=== PATIENT | male | born 1995 | race Caucasian/White ===

== ENCOUNTER 2018-03-05 09:06 | Emergency (ER) | payer SELFPAY ==
[2018-03-05 09:07] VITALS: BP 154/104; PULSE 85; RESP 16; TEMP 36.1; O2SAT 100; BMI 33.5
[2018-03-05] MEDS: HYDROcodone Bitartrate/Apap 5/325 Tablet PO (09:23)
--- NOTE | 2018-03-05 10:24 | ED.DCSUM_ITS ---
- ER Visit Summary Date of Service: 03/05/18 Chief Complaint: Left elbow pain History of Present Illness: The patient is a 22 M no significant past medical history. He is right-hand dominant. He was wrestling with a friend last night he fell off of bed and the friend landed on his left elbow. He said since that time he had significant pain and swelling. Pain is greatly increased with range of motion. He said it feels much better flexed than it does be tries to extend it. He denies any numbness or weakness in his left hand he denies any left shoulder pain. He has never had any surgery to this extremity. He denies other injuries. Physical Examination: Well-appearing young male. Vital signs are stable afebrile. H EENT exam unremarkable atraumatic C-spine nontender. Back nontender. Lungs clear to auscultation. Heart regular rhythm no murmur. Chest wall nontender. Abdomen soft nontender. Pelvic girdle intact. The right upper extremity both lower extremities are nontender neurovascularly intact. The left elbow he has flex at about 90?. It is swollen. There is tenderness. There is no gross bony deformity. No obvious dislocation. He is able to flex and extend but has significant much more pain with extension. The left shoulder, mid forearm, wrist and hand are nontender neurovascular intact with a strong radial pulse. 5 out of 5 inside meter tester strength and normal sensation to left hand. The skin is intact without any lacerations. His neurologic exam is normal. Test Results: Left elbow x-ray shows no acute fracture. There is soft tissue swelling. There is no dislocation. This was read both by myself and the radiologist. Emergency Department Course and Treatment: Patient given 2 Max for pain. On repeat exam is doing well. We went over his x-rays. Patient be placed in a sling. Motrin for pain. And follow-up with Dr. Rodney Corona in 1-2 weeks if not improving. Treatment Plan: Treated as a left elbow sprain. Sling. Anti-inflammatories and ice. Disposition: Discharge Impression: Left elbow sprain This note was generated with [employer] dictation software. It may contain incorrect words, spelling, and punctuation that were not noted in review of the chart prior to signing ED Disposition - Plan for ED Patient: Chief Complaint: Upper Extremity Injury Referrals: Care Physician,No Primary [Primary Care Provider] -
--- NOTE | 2018-03-05 10:24 | ED.DEP ---
ED Disposition - Plan for ED Patient: Disposition: Home or Assisted Living Chief Complaint: Upper Extremity Injury Instructions: ED Sprain Elbow Referrals: David Corona MD [STAFF PHYSICIAN] - 10-14 Days if not better Additional Instructions: Ice and elevate left elbow to decrease pain and swelling. Motrin 600-800 mg 3-4 times a day with food. This should progressively improve if not follow-up with Dr. Madhu Corona for further evaluation. At this time your x-ray show no fracture nor any dislocations.
== END 2018-03-05 10:48 | disposition home or self-care (01) ==
PROVIDERS: Emergency Provider Emergency Medicine
DX: S53.402A Unspecified sprain of left elbow, initial encounter (principal); Z72.0 Tobacco use; W06.XXXA Fall from bed, initial encounter; Y93.72 Activity, wrestling; Y92.003 Bedroom of unspecified non-institutional (private) residence as the place of occurrence of the external cause; Y99.8 Other external cause status
CPT/HCPCS: 73080; 99284

== ENCOUNTER 2019-03-28 19:17 | Emergency (ER) | payer BC, SELFPAY ==
[2019-03-28 19:18] VITALS: BP 153/67; PULSE 97; RESP 15; TEMP 36.9; O2SAT 100; BMI 33.8
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
[2019-03-28 20:09] LABS: Absolute Lymphocyte Count 3.43 X10^3/uL (0.83-4.51); Absolute Neutrophil Count 9.7 X10^3/uL (2.0-7.7); Basophil# 0.06 X10^3/uL; Basophil% 0.4 % (0-1); Eosinophil# 0.18 X10^3/uL; Eosinophils% 1.2 % (0-5); Hematocrit 44.2 % (40-54); Hemoglobin 14.3 g/dL (13.0-16.5); Lymphocyte # 3.43 X10^3/ul (4.0); Mean Corp Hgb Conc 32.4 g/dL (32-36); Mean Corpuscular Volume 92.7 fL (80-94); Mean Platelet Vol. 8.7 fl (6.2-12.0); Monocyte# 1.49 X10^3/uL; NRBC Flagged by Analyzer 0 % (0-5); Neutrophil # 9.69 X10^3/uL (2.7-7.7); Neutrophil % 64.9 % (47-70); Platelet Count 324 K/mm3 (150-450); RBC Distribution Width CV 14.6 % (11.6-14.6); RBC Distribution Width SD 49.9 fl (35.1-43.9); Red Blood Count 4.77 M/mm3 (4.6-6.2); White Blood Count 14.9 K/mm3 (4.4-11.0)
[2019-03-28 20:19] LABS: Anion Gap 6 (5-15); BUN 10 mg/dL (7-18); BUN/Creat Ratio 10.2 RATIO (10-20); Chloride 105 mmol/L (98-107); Creatinine, Serum 0.98 mg/dL (0.70-1.30); EST Glomerular Filtration Rate 100 mL/min (>60); Est Glom Filt Rate - Afr Amer 121 mL/min (>60); Glucose 87 mg/dL (74-106); Potassium 3.8 mmol/L (3.5-5.1); Sodium Level 138 mmol/L (136-145)
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
--- NOTE | 2019-03-28 21:54 | ED.DEP ---
ED Disposition - Plan for ED Patient: Disposition: Home or Assisted Living Instructions: Contusions (Bruises) Referrals: Care Physician,No Primary [NON-STAFF] - 3-5 Days if not improving Additional Instructions: Tylenol and Motrin for pain. Ice all sore areas. Follow-up with your doctor if not improving return if worse.
[2019-03-28 22:02] VITALS: BP 133/78; PULSE 80; RESP 14; O2SAT 100
== END 2019-03-28 22:03 | disposition home or self-care (01) ==
PROVIDERS: Emergency Provider Emergency Medicine; Family Provider Family Medicine; PCP Family Medicine
DX: S40.012A Contusion of left shoulder, initial encounter (principal); S30.1XXA Contusion of abdominal wall, initial encounter; Z72.0 Tobacco use; V86.65XA Passenger of 3- or 4- wheeled all-terrain vehicle (ATV) injured in nontraffic accident, initial encounter; Y93.I9 Activity, other involving external motion; Y92.89 Other specified places as the place of occurrence of the external cause; Y99.8 Other external cause status
CPT/HCPCS: 71046; 73030; 74177; 80048; 85025; 99283; Q9967; A4216

== ENCOUNTER 2020-05-19 11:48 | Emergency (ER) | payer MEDICAID, SELFPAY ==
[2020-05-19 11:49] VITALS: BP 156/96; PULSE 80; RESP 17; TEMP 36.4; O2SAT 98; BMI 37.4
--- NOTE | 2020-05-19 12:51 | ED.RN ---
pt states he is going to try to find an urgent care. pt walked out of emergency department.
== END 2020-05-19 14:18 | disposition left against medical advice (07) ==
PROVIDERS: Emergency Provider Student in an Organized Health Care Education/Training Program
DX: R21 Rash and other nonspecific skin eruption (principal)

== ENCOUNTER 2022-01-22 18:51 | Emergency (ER) | payer MEDICAID, SELFPAY ==
[2022-01-22 18:52] VITALS: BP 217/179; PULSE 72; RESP 18; TEMP 36.3; O2SAT 100; BMI 36.9
--- NOTE | 2022-01-22 19:10 | EKG12_ITS ---
Test Reason : DYSRHYTHMIA Blood Pressure : / mmHG Vent. Rate : 066 BPM Atrial Rate : 066 BPM P-R Int : 156 ms QRS Dur : 088 ms QT Int : 388 ms P-R-T Axes : 023 034 054 degrees QTc Int : 406 ms Normal sinus rhythm with sinus arrhythmia Normal ECG Confirmed by FREDERIC MARIE, JACKI ([id number]), deputy editor in chief ROSALINO BECKER ([id number]) on 01/24/2022 9:22:48 AM Referred By: JUDY Confirmed By:JACKI DE LA GARZA MD
--- NOTE | 2022-01-22 19:22 | ED.VIS.CHEST ---
HPI History of Present Illness Chief Complaint: Chest Pain Onset/Context/Timing Onset: Weeks (1) Activity at onset: gradual Timing: Intermittent Quality: Positive for Heaviness and Sharp Location: Left Chest Worsened By: Movement of Torso and - (Laying down) Relieved By: Nothing Associated Symptoms: Positive for Nausea, Diaphoresis, Dyspnea, Lightheadedness, Acid Reflux and Palpitations; Negative for Vomiting, Cough or Fever Narrative Narrative: Patient presents with chest pain that began approximate 1 week ago. Patient states it has been intermittent. Patient states it is over the left lateral side of his chest. Patient describes it as sharp. Patient states he also has a heavy feeling in his chest. Patient states he has been constantly short of breath over the last week. Patient admits to nausea but denies any vomiting. Patient admits to some diaphoresis. Patient also felt some palpitations where his heart was racing. Patient had a syncopal episode today where he passed out while sitting. Patient states his pain is worse when he lays down and rolls onto the left side of his chest. [facility] Medical History Anxiety Bloody stool Chronic neck and back pain Diarrhea Difficulty balancing when standing Knee pain Stomach ulcer Substance abuse Home Medications buspirone 5 mg tablet 5 mg PO BID 01/22/22 [History Last Taken Unknown] Allergy/AdvReac Type Severity Reaction Status Date / Time No Known Allergies Allergy Verified 05/19/20 13:50 Surgical History History of ankle surgery Social History Smoking Status: Unknown if ever smoked ROS ROS ED Constitutional Constitutional ED: Denies chills or fever(s) Eyes Eyes: Denies blurry vision or change in vision ENT ENT ED: Denies rhinorrhea or sore throat Cardiovascular Cardiovascular: Reports chest pain, palpitations and racing heartbeat Respiratory/Chest Respiratory/Chest: Reports dyspnea; Denies cough Gastrointestinal Gastrointestinal: Reports nausea; Denies abdominal pain or vomiting Genitourinary Genitourinary ED: Denies dysuria or hematuria Musculoskeletal Musculoskeletal: Denies back pain or neck pain Integumentary Denies abscess or rash Neurologic Neurologic: Reports headache(s); Denies weakness Allergic/Immunologic Allergic/Immunologic ED: Denies mouth swelling or urticaria EXAM Physical Exam Const Vital Signs: 01/22/22 18:52 01/22/22 19:23 01/22/22 20:39 Temperature 97.4 F L Temperature Source Temporal Pulse Rate 72 73 67 Respiratory Rate 18 14 17 Blood Pressure 217/179 H 129/94 H 117/76 Blood Pressure Mean 191 105 89 Pulse Ox 100 96 97 Oxygen Delivery Method Room Air Room Air Room Air Positive well nourished and well developed General Appearance ED: well developed and NAD HEENT normocephalic and atraumatic Eyes PERRL and EOMs intact bilaterally Neck supple and no JVD Chest Wall palpation of chest normal Resp normal respiratory effort and clear to auscultation bilaterally Effort and Inspection: Negative for respiratory distress Cardio regular rate, regular rhythm and no murmurs GI normal to inspection, nondistended, normoactive bowel sounds, soft to palpation, non-tender and non-distended Extremity normal to inspection General Extremety ED: Negative for edema or tenderness General Extremity: Negative for edema Neuro oriented x3, CN's II-XII intact bilaterally and no sensory deficits noted Sensorium / Orientation: awake and alert Motor Exam: strength 5/5 throughout Psych mental status grossly normal Heart Score History: Slightly/Non-Suspicious ECG: Normal Age: </= 45 years Risk Factors: 1 or 2 Risk Factors Score: 1 MDM MDM MDM Narrative Medical decision making narrative: EKG was obtained. On my interpretation, it showed a normal sinus rhythm with a rate of 66. [place] interval, QRS interval, and QTc intervals were all normal. [place] was normal. There are no acute ST or T wave changes. Portable 1 view chest x-ray was obtained. On my interpretation, lung nath are clear. There is normal cardiac silhouette. Bony thorax is normal. There is no acute process noted. Radiologist also interpreted the x-ray and agrees. CBC shows a mild leukocytosis of 14.1 but was otherwise within normal limits. Basic metabolic profile was within normal limits. High-sensitivity troponin was normal. Patient has a HEART score of 1. Patient was advised that this is low risk for acute cardiac event. Patient was instructed to follow-up with his primary care physician in 5 to 7 days for further evaluation. Patient understood and was agreeable with the plan. All questions were answered. Lab Data Attestation: I reviewed the patient's lab results. Labs: Laboratory Results - last 24 hr 01/22/22 01/22/22 19:15 19:15 WBC 14.1 H RBC 4.83 Hgb 14.3 Hct 44.6 MCV 92.3 MCH 29.6 MCHC 32.1 RDW Std Deviation 46.3 H RDW Coeff of Jessica 13.6 Plt Count 400 MPV 10.5 Immature Gran % (Auto) 0.400 Neut % (Auto) 52.7 Lymph % (Auto) 33.8 [place] % (Auto) 9.9 Eos % (Auto) 2.5 Baso % (Auto) 0.7 Absolute Neuts (auto) 7.5 Absolute Lymphs (auto) 4.77 H Nucleated RBC % 0 Sodium 141 Potassium 4.1 Chloride 108 H Carbon Dioxide 27.0 Anion Gap 6 BUN 13 Creatinine 0.97 Estim Creat Clear Calc 131.57 Est GFR (MDRD) Af Amer 121 Est GFR (MDRD) Non-Af 100 BUN/Creatinine Ratio 13.4 Glucose 67 L Calcium 9.5 Troponin I High Sens 3 Radiography Chest X-Ray - ED: 1 View, Read by ED Physician, Read by Radiologist and Normal Diagnostic Testing: Clinical Impression(s) from Imaging Studies Chest X-Ray 01/22/22 19:38 IMPRESSION: Normal x-ray examination of the chest. Electronically Signed: Juan Lyn MD at 20:13 EDT , EKG Initial EKG: Attestation: I personally reviewed and interpreted this EKG as follows: Interpretation: Sinus Rhythm (66) and No Acute Injury Pattern Discharge Plan Triage Chief Complaint: Chest Pain ED Provider: Dallas Trejo Dx/Rx/DC Orders Clinical Impression: Chest pain of uncertain etiology, Obesity (BMI 35.0-39.9 without comorbidity) Instructions: ED Chest Pain, Uncertain Cause Prescriptions: No Action buspirone 5 mg Tablet 5 mg PO BID Primary Care Provider: Care Physician,No Primary Referrals: Kathy Gallardo MD [STAFF PHYSICIAN] - 5-7 Days Disposition Disposition: Home, Self Care
[2022-01-22 19:23] VITALS: BP 129/94; PULSE 73; RESP 14; O2SAT 96
--- NOTE | 2022-01-22 19:38 | RAD_ITS ---
STUDY: X-RAY CHEST REASON FOR EXAM: Male, 26 years old. Chest pain TECHNIQUE: PA and lateral COMPARISON: 03/28/2015. FINDINGS: The lungs are clear and expanded. There is no demonstrated pleural abnormality. Normal size heart. Normal mediastinum and siobhan. Normal visualized pulmonary arteries. Normal visualized aortic arch and descending thoracic aorta. Normal visualized thoracic spine. Normal visualized ribs, clavicles, and shoulders. There is no demonstrated abnormality of the visualized soft tissue structures of the upper abdomen. RAD/Chest PA and Lateral IMPRESSION: Normal x-ray examination of the chest. Electronically Signed: Juan Lyn MD at 20:13 EDT ,
[2022-01-22 20:15] LABS: Anion Gap 6 (5-15); BUN 13 mg/dL (7-18); BUN/Creat Ratio 13.4 RATIO (10-20); Calcium,Total 9.5 mg/dL (8.5-10.1); Chloride 108 mmol/L (98-107); Creatinine, Serum 0.97 mg/dL (0.70-1.30); EST Glomerular Filtration Rate 100 mL/min (>60); Est Glom Filt Rate - Afr Amer 121 mL/min (>60); Estimated Creatinine Clearance 131.57 ml/min; Glucose 67 mg/dL (74-106); Potassium 4.1 mmol/L (3.5-5.1); Sodium Level 141 mmol/L (136-145); Troponin-I HS 3 pg/mL (3.0-78.0)
[2022-01-22 20:20] LABS: Absolute Lymphocyte Count 4.77 X10^3/uL (0.83-4.51); Absolute Neutrophil Count 7.5 X10^3/uL (2.0-7.7); Basophil% 0.7 % (0-1); Eosinophil# 0.35 X10^3/uL; Eosinophils% 2.5 % (0-5); Hematocrit 44.6 % (40-54); Hemoglobin 14.3 g/dL (13.0-16.5); Lymphocyte # 4.77 X10^3/ul (0.83-4.51); Lymphocyte % 33.8 % (19-41); Mean Corp Hgb Conc 32.1 g/dL (32-36); Mean Corpuscular Hgb 29.6 pg (27.0-32.0); Mean Corpuscular Volume 92.3 fL (80-94); Mean Platelet Vol. 10.5 fl (6.2-12.0); Monocyte% 9.9 % (0-10); NRBC Flagged by Analyzer 0 % (0-5); Neutrophil # 7.45 X10^3/uL (2.7-7.7); Neutrophil % 52.7 % (47-70); Platelet Count 400 K/mm3 (150-450); RBC Distribution Width CV 13.6 % (11.6-14.6); RBC Distribution Width SD 46.3 fl (35.1-43.9); Red Blood Count 4.83 M/mm3 (4.6-6.2); White Blood Count 14.1 K/mm3 (4.4-11.0)
[2022-01-22 20:39] VITALS: BP 117/76; PULSE 67; RESP 17; O2SAT 97
[2022-01-22 20:49] VITALS: BP 117/76; PULSE 67; RESP 17; O2SAT 97
== END 2022-01-22 20:49 | disposition home or self-care (01) ==
PROVIDERS: Emergency Provider Emergency Medicine; Visit Provider Emergency Medicine
DX: R07.9 Chest pain, unspecified (principal); R11.0 Nausea; E66.9 Obesity, unspecified; R06.00 Dyspnea, unspecified; Z68.36 Body mass index [BMI] 36.0-36.9, adult; F41.9 Anxiety disorder, unspecified; Z79.899 Other long term (current) drug therapy
CPT/HCPCS: 71046; 80048; 84484; 85025; 93005; 99284; A4216